=== PATIENT | male | born 1970 | race Caucasian/White ===

== ENCOUNTER 2023-10-04 06:27 | Emergency (ER) | payer OTHER, SELFPAY ==
[2023-10-04 06:29] VITALS: BP 119/78; PULSE 74; TEMP 36.4; O2SAT 100; BMI 24.4
[2023-10-04 06:31] VITALS: BP 119/78; O2SAT 99
--- NOTE | 2023-10-04 06:37 | XR_ITS ---
The [address] [address] Patient Name: CONRAD SIMS MRN: [id number] date: 1970 Sex: M Assigned Patient Location: ER Current Patient Location: ER Accession/Order Number: [id number] Exam Date: 10/04/2023 07:03 Report Date: 10/04/2023 07:22 At the request of: CRISTHIAN DAVIS Procedure: XR chest 2V EXAMINATION: XR chest 2V HISTORY: shortness of breath COMPARISON: XR chest 08/02/2015 FINDINGS: LUNGS: No significant pulmonary parenchymal abnormalities. VASCULATURE: No increased pulmonary vasculature. PLEURA: No pneumothorax, effusion, or pleural thickening. CARDIAC: No cardiomegaly or cardiac silhouette abnormality. MEDIASTINUM: No visible mass or adenopathy. BONES: No fracture or visible bone lesion. OTHER: Negative. XR/XR chest 2V IMPRESSION: 1. No acute cardiopulmonary process or suspicious findings. Electronically authenticated by: MARICRUZ NELSON Date: 10/04/2023 07:22
--- NOTE | 2023-10-04 06:37 | ECG_ITS ---
[facility] Test Date: 2023-10-04 Pat Name: CONRAD SIMS Department: Room: - Gender: Male [employer]: : 1970 Requested By: Order Number: [id number] Reading MD: FLORENTIN WILLIAM Measurements Intervals [place] Rate: 69 P: 79 OK: 158 QRS: 84 QRSD: 86 T: 69 QT: 356 QTc: 375 Interpretive Statements 1100 Sinus rhythm 9110 normal ECG No previous ECG available for comparison Electronically Signed On 10-05-2023 7:37:49 EDT by FLORENTIN WILLIAM
[2023-10-04 06:39] VITALS: O2SAT 100
[2023-10-04 06:43] VITALS: BP 117/80; PULSE 62; O2SAT 100
[2023-10-04 06:44] LABS: Basophils Absolute Auto 0.1 10^3/uL (0.0-0.1); Eosinophils Absolute Auto 0.3 10^3/uL (0.0-0.7); Eosinophils Percent Auto 4.8 % (0.9-7.0); Hematocrit 45.1 % (42.0-54.0); Hemoglobin 15.2 g/dL (14.0-18.0); Immature Granulocytes Abs Auto 0.03 10^3/uL (0.00-0.03); Immature Granulocytes Pct Auto 0.4 % (0.0-0.5); Lymphocytes Absolute Auto 2.1 10^3/uL (1.2-3.8); Lymphocytes Percent Auto 30.3 % (20.5-60.0); Mean Corpuscular HGB Conc 33.7 g/dL (29.9-35.2); Mean Corpuscular Hemoglobin 30.2 pg (25.9-34.0); Mean Corpuscular Volume 89.7 fL (80.0-94.0); Mean Platelet Volume 10.9 fL (9.5-13.5); Monocytes Absolute Auto 0.4 10^3/uL (0.3-0.8); Neutrophils Absolute Auto 4.1 10^3/uL (1.4-6.5); Neutrophils Percent Auto 57.5 % (43.0-75.0); Platelet Count 199 10^3/uL (150-450); Red Blood Count 5.03 10^6/uL (4.70-6.10); Red Cell Distribution Width 13.7 % (11.0-15.0)
[2023-10-04] MEDS: ALPRAZOLAM 0.5 MG TABLET PO (07:00)
[2023-10-04 07:04] VITALS: PULSE 68
[2023-10-04 07:08] LABS: Anion Gap 12.2; BUN Creatinine Ratio 12.5; Calcium 9.3 mg/dL (8.5-10.1); Carbon Dioxide 26.9 mmol/L (21.0-32.0); Chloride 104 mmol/L (98-107); Estimated GFR (African America >60 (>=60); Estimated GFR (Non-African Ame >60 (>=60); Glucose 123 mg/dL (74-106); Potassium 4.1 mmol/L (3.5-5.1); Sodium 139 mmol/L (136-145); Troponin I High Sensitivity 4.1 pg/mL (4.0-76.1)
--- NOTE | 2023-10-04 07:30 | ED_ITS ---
HPI HPI - General Adult General Chief complaint: Shortness of Breath/Dyspnea Stated complaint: SOB Time Seen by Provider: 10/04/23 06:35 Source: patient Mode of arrival: walk-in Limitations: no limitations History of Present Illness HPI narrative: This patient is here complaining of little dizziness he had a sharp stabbing chest pain he is got tingling in his feet. He did not have nausea vomiting or diaphoresis. He has no underlying medical problems that he is aware of. He does not see family doctor on an ongoing basis but has had evaluation by primary care doctor in [place]. Initially seen by Dr. Shelby and then with laboratory testing EKG and chest x-ray evaluation all done. He does smoke half a pack of cigarettes a day. He does not have diabetes or elevation of his cholesterol that he is aware of. There is no strong history of cardiac disease. His appetites been good. He does not have any tearing or ripping sensation in his back. He says he also had a little bit of shortness of breath over the last 3 days. Related Data Home Medications ?Medication ?Instructions ?Recorded ?Confirmed No Known Home Medications 10/04/23 10/04/23 Allergies Allergy/AdvReac Type Severity Reaction Status Date / Time Penicillins Allergy Intermediate Hives Verified 10/04/23 06:33 Opioid HPI Opioid Management Most Recent Opioid Data: No Data to Display Exam Narrative Exam Narrative: Awake alert moderately anxious. Vital signs are noted and are completely normal. His pulse ox remains 99% with a normal respiratory effort on room air. HEENT shows no evidence of pallor or scleral icterus His lungs are clear with no wheeze rales or rhonchi. Heart sounds are normal with no S3-S4 or murmur. He does not have any abdominal pain. His extremities do not have any DVT. She got chronic skin rash on the anterior tibia. His back shows no evidence of shingles. Constitutional Vital Signs, click to edit/add: Last Vital Signs Temp 97.6 F 10/04/23 06:29 Pulse 68 10/04/23 07:04 Resp 18 10/04/23 06:29 BP 117/80 10/04/23 06:43 Pulse Ox 100 10/04/23 06:43 O2 Del Method Room Air 10/04/23 06:39 Course Vital Signs Vital signs: Vital Signs Temperature 97.6 F 10/04/23 06:29 Pulse Rate 74 10/04/23 06:29 Respiratory Rate 18 10/04/23 06:29 Blood Pressure 119/78 10/04/23 06:29 Pulse Oximetry 100 10/04/23 06:29 Oxygen Delivery Method Room Air 10/04/23 06:29 Temperature 97.6 F 10/04/23 06:29 Pulse Rate 68 10/04/23 07:04 Respiratory Rate 18 10/04/23 06:29 Blood Pressure 117/80 10/04/23 06:43 Pulse Oximetry 100 10/04/23 06:43 Oxygen Delivery Method Room Air 10/04/23 06:39 Medical Decision Making MDM Narrative Medical decision making narrative: Patient presents with multiple symptomatology that do not seem necessary related. He was prompted to come to emergency room because initial brief episode of sharp chest discomfort that spontaneously abated. He has tingling of his feet. His blood glucose is modestly elevated. I talked to them both extensively about following up with primary care and getting a hemoglobin A1c done. He was also cautioned about continuation of tobacco use. His EKG and cardiac troponin and rest laboratory testing are all normal. I do not believe there is emergency medical condition today. He will be given a copy of his lab test and encouraged to follow-up with his PCP Lab Data Labs: Lab Results 10/04/23 Range/Units 06:35 WBC 7.0 (4.0-11.0) 10^3/uL RBC 5.03 (4.70-6.10) 10^6/uL Hgb 15.2 (14.0-18.0) g/dL Hct 45.1 (42.0-54.0) % MCV 89.7 (80.0-94.0) fL MCH 30.2 (25.9-34.0) pg MCHC 33.7 (29.9-35.2) g/dL RDW 13.7 (11.0-15.0) % Plt Count 199 (150-450) 10^3/uL MPV 10.9 (9.5-13.5) fL Neut % (Auto) 57.5 (43.0-75.0) % Lymph % (Auto) 30.3 (20.5-60.0) % [place] % (Auto) 6.0 (1.7-12.0) % Eos % (Auto) 4.8 (0.9-7.0) % Baso % (Auto) 1.0 (0.2-2.0) % Neut # (Auto) 4.1 (1.4-6.5) 10^3/uL Lymph # (Auto) 2.1 (1.2-3.8) 10^3/uL [place] # (Auto) 0.4 (0.3-0.8) 10^3/uL Eos # (Auto) 0.3 (0.0-0.7) 10^3/uL Baso # (Auto) 0.1 (0.0-0.1) 10^3/uL Abs Immat Gran (auto) 0.03 (0.00-0.03) 10^3/uL Imm/Tot Granulo (auto) 0.4 (0.0-0.5) % Sodium 139 (136-145) mmol/L Potassium 4.1 (3.5-5.1) mmol/L Chloride 104 (98-107) mmol/L Carbon Dioxide 26.9 (21.0-32.0) mmol/L Anion Gap 12.2 BUN 13.0 (7.0-18.0) mg/dL Creatinine 1.04 (0.70-1.30) mg/dL Est GFR ( Amer) >60 (>=60) Est GFR (Non-Af Amer) >60 (>=60) BUN/Creatinine Ratio 12.5 Glucose 123 H (74-106) mg/dL Calcium 9.3 (8.5-10.1) mg/dL Troponin I High Sens 4.1 (4.0-76.1) pg/mL NT-Pro-B Natriuret Pep 27.0 (<=900.0) pg/mL Discharge Plan Discharge Stand Alone Forms: Portal Instructions Chief Complaint: Shortness of Breath/Dyspnea Clinical Impression: Chest pain Patient Disposition: Home, Self-Care Prescriptions / Home Meds: No Action No Known Home Medications Print Language: [place] Island[place] Additional Instructions: Follow-up with your primary care doctor as discussed Referrals: Nereida Sutherland [Primary Care Provider] - 1 week
== END 2023-10-04 07:45 | disposition home or self-care (01) ==
PROVIDERS: Emergency Medicine; Emergency Provider Emergency Medicine Emergency Medical Services
DX: R07.9 Chest pain, unspecified (principal); F17.210 Nicotine dependence, cigarettes, uncomplicated; R06.02 Shortness of breath
CPT/HCPCS: 36415; 71046; 80048; 83880; 84484; 85025; 93005; 99285